=== PATIENT | female | born 1960 | race Caucasian/White ===

== ENCOUNTER → 2016-02-18 | Outpatient (CLI) | payer OTHER ==
[~2016-02-18] MED LIST: AML5T PO; ARIP2TAB9 PO; BENA20TA2 PO; CLON1TAB3 PO; DIPH1TAB PO; ESCI20TA PO; MESA0.372 PO; PANT40TA3 PO
--- NOTE | 2016-02-18 12:06 | Diagnostic Imaging Report ---
INDICATION: Epigastric pain. COMPARISON: None. FINDINGS: A double contrast upper GI series was performed. A small hiatal hernia is present with minimal reflux. Otherwise, the swallowing mechanism and course and caliber of the esophagus are normal. There is some slight gastric fold thickening which could indicate gastritis. Please correlate clinically. The duodenum and proximal small bowel are unremarkable. IMPRESSION: 1. Small hiatal hernia with minimal reflux. 2. Mild gastric wall thickening, suggestive of gastritis. Dictated by: Dictated on workstation # [id number]
== END ==
LOC: RAD 09:21
PROVIDERS: ATTEND Family Medicine
DX: R10.11 Right upper quadrant pain (principal); K44.9 Diaphragmatic hernia without obstruction or gangrene
CPT/HCPCS: 74241

== ENCOUNTER → 2016-03-08 | Outpatient (CLI) | payer OTHER | LOC: RAD 08:14 | PROVIDERS: ATTEND Family Medicine | DX: R10.84 Generalized abdominal pain (principal) | CPT/HCPCS: 78227; A9537; J2805 ==